=== PATIENT | female | born 1965 | race Caucasian/White ===

== ENCOUNTER 2021-10-19 10:52 | Emergency (ER) | payer MEDICAID ==
[~2021-10-19] VITALS: Ht 157.5 cm; Wt 50.0 kg
[~2021-10-19 10:52] MED LIST: ALBU8.5H17 IH; OXYC-145 PO
[2021-10-19 11:04] VITALS: BP 133/93
[2021-10-19] MEDS ORDERED: ALBU6.7H9 INH (12:22)
[2021-10-19] MEDS ORDERED: AMOX-117 PO (12:22)
[2021-10-19] MEDS ORDERED: PRED20TA PO (12:22)
== END 2021-10-19 12:26 | disposition home or self-care (01) ==
LOC: ER 10:53
DX: J20.9 Acute bronchitis, unspecified (principal); J44.1 Chronic obstructive pulmonary disease with (acute) exacerbation; Z20.822 Contact with and (suspected) exposure to COVID-19; Z79.899 Other long term (current) drug therapy
CPT/HCPCS: 71045; 87635; 99284; C9803

== ENCOUNTER 2024-10-09 12:50 | Emergency (ER) | payer MEDICAID ==
[~2024-10-09] VITALS: Ht 152.4 cm; Wt 51.2 kg
[~2024-10-09 12:50] MED LIST changes: +ALBU6.7H14 INH
[2024-10-09 12:54] VITALS: BP 186/98; PULSE 85; RESP 16; TEMP 98.1; O2SAT 96
== END 2024-10-09 14:52 | disposition left against medical advice (07) ==
LOC: ER 12:51
DX: H57.12 Ocular pain, left eye (principal); Z53.21 Procedure and treatment not carried out due to patient leaving prior to being seen by health care provider